=== PATIENT | female | born 1945 | race Caucasian/White ===

== ENCOUNTER → 2021-05-09 | Day surgery (SDC) | payer OTHER ==
[~2021-05-09] VITALS: Ht 162.6 cm; Wt 80.0 kg
[~2021-05-09] MED LIST: AMLO-186 PO; ATEN25TA PO; BENEDRYL; IV RINGERS,LACTATED 1000ML 1,000 ML IV SCH; LEVO112T2 PO; LIDOCAINE 2% PF 5 ML VIAL. ONE; OMEP20TA8 PO; POTA-121 PO; PRAV20TA2 PO; PROPOFOL 10 MG/ML (20ML) VIAL. IV ONE
[2021-05-09 08:29] VITALS: BP 133/64
[2021-05-09 09:38] VITALS: BP 147/56
--- NOTE | 2021-05-09 14:22 | HP ---
DATE OF SERVICE: 05/09/2021 ADMIT DATE: 05/09/2021 UPDATED HISTORY AND PHYSICAL REASON: History of colonic polyps. HISTORY OF PRESENT ILLNESS: A 75-year-old female whose past medical history is significant for diverticulosis, hemorrhoids, depression, fibromyalgia, hypertension, hyperlipidemia, hypothyroidism, sleep apnea and colonic polyps, is seen for interval exam. Bowel habits are regular without diarrhea or constipation. There has been no melena and no hematochezia. She is otherwise without additional complaints. PAST MEDICAL HISTORY: As stated. ALLERGIES: PENICILLIN, CIPRO, CODEINE, AND IODINE. MEDICATIONS: Include amlodipine, atenolol, levothyroxine, omeprazole, and pravastatin. FAMILY HISTORY: Significant for breast cancer with her mother and hypertension with her mother. PAST SURGICAL HISTORY: Status post appendectomy, cholecystectomy, and hysterectomy. REVIEW OF SYSTEMS: Per records. PHYSICAL EXAMINATION: GENERAL: Well-nourished and well-developed female, alert and cooperative, in no acute distress. VITAL SIGNS: Temperature 97.2, pulse 52, and respirations 20. LUNGS: Clear. CARDIOVASCULAR: Reveals an S1, S2, without S3, S4 or appreciable murmur. ABDOMEN: Exam reveals a soft abdomen, normal bowel sounds, without appreciable hepatosplenomegaly. EXTREMITIES: Reveals no cyanosis, clubbing or edema. IMPRESSION: History of colonic polyps. Surveillance exam is recommended at this time. Risks and benefits of procedure including the risk of hemorrhage and perforation with operation were discussed. The patient is willing to proceed. VIANCA DR: Avi TID: [id number]
--- NOTE | 2021-05-14 09:07 | PATHOLOGY ---
[facility] Accession Number: [id number] . 01 Material submitted: . PART A: cecum - CECAL POLYP BIOPSY PART B: colon - DESCENDING COLON POLYPECTOMY. Modifiers: descending . 01 Clinical history: . COLON POLYPS COLONOSCOPY . 02 Diagnosis: A. Colon biopsies, cecal polyps: - Tubular adenomas. . B. Colonic mucosa, descending colon polypectomy: - Tubular adenoma. (JPM:saritha; 05/14/2021) QMS 05/14/2021 0850 Local . 02 Comment: There is no high grade dysplasia or evidence of malignancy. (JPM:saritha; 05/14/2021) . 02 Electronically signed: . Selwyn Das MD, Pathologist NPI- [id number] . 01 Gross description: . A. The specimen is received in formalin, labeled "Eli Contrerast, cecal polyp biopsy". Received are multiple segments of pale jackson tissue ranging in size from 0.3-0.6 cm in maximum dimensions. The specimen is submitted entirely in cassette A1. . B. The specimen is received in formalin, labeled "Eli Klaudt, descending colon polypectomy". Received are three segments of pale jackson tissue ranging in size from 0.3-0.5 cm in maximum dimensions. The specimen is submitted entirely in cassette B1. (CAA; 05/11/2021) QAC/QAC 05/11/2021 1242 Local . 02 Pathologist provided ICD-10: D12.0, D12.4 . 02 CPT . 500543, 518580 Specimen Comment: A courtesy copy of this report has been sent to [phone] Specimen Comment: Report sent to Performed at: [address] [place], [place] [address] [address], [place], [place] [id number] MD Galindo Duque MD Phone: [phone] Performed at: [address] [id number] MD Selwyn Das MD Phone: [phone]
== END | disposition home or self-care (01) ==
LOC: ENDOS 08:00
PROVIDERS: ATTEND Internal Medicine Gastroenterology
DX: Z12.11 Encounter for screening for malignant neoplasm of colon (principal); K63.5 Polyp of colon; K64.0 First degree hemorrhoids; K57.30 Diverticulosis of large intestine without perforation or abscess without bleeding; K63.89 Other specified diseases of intestine; I10 Essential (primary) hypertension; E03.9 Hypothyroidism, unspecified; G47.30 Sleep apnea, unspecified; E78.00 Pure hypercholesterolemia, unspecified; M19.90 Unspecified osteoarthritis, unspecified site; F32.9 Major depressive disorder, single episode, unspecified; Z90.49 Acquired absence of other specified parts of digestive tract; Z90.710 Acquired absence of both cervix and uterus; Z98.890 Other specified postprocedural states; Z87.891 Personal history of nicotine dependence; Z85.828 Personal history of other malignant neoplasm of skin; Z79.899 Other long term (current) drug therapy; Z88.0 Allergy status to penicillin; Z88.1 Allergy status to other antibiotic agents; Z88.5 Allergy status to narcotic agent; Z88.8 Allergy status to other drugs, medicaments and biological substances; Z80.3 Family history of malignant neoplasm of breast; Z82.49 Family history of ischemic heart disease and other diseases of the circulatory system
CPT/HCPCS: 45380; 45385; J2704